=== PATIENT | male | born 1980 | race Caucasian/White ===

== ENCOUNTER 2018-06-03 19:34 | Emergency (ER) | payer OTHER ==
[~2018-06-03] VITALS: Ht 188 cm; Wt 113.4 kg
[2018-06-03] MEDS ORDERED: COZAAR 25 MG TA25 M1 (19:42)
[2018-06-03] MEDS ORDERED: VITAMIN B-12500 MCG (19:43)
[2018-06-03] MEDS ORDERED: ALLEGRA-D 24 H1 EACH (19:43)
[2018-06-03 20:05] LABS: ABSOLUTE BASOPHILS 0.1 thou/uL (0.0-0.2); ABSOLUTE EOSINOPHILS 0.2 thou/uL (0.0-0.7); ABSOLUTE LYMPHOCYTES 2.4 thou/uL (0.8-5.3); ABSOLUTE MONOCYTES 0.6 thou/uL (0.0-1.2); ABSOLUTE NEUTROPHILS 6.3 thou/uL (1.6-8.1); BASOPHILS 1.2 %; EOSINOPHILS 2.4 %; HEMATOCRIT 38.7 % (42.0-52.0); HEMOGLOBIN 13.4 gm/dL (14.0-18.0); MCH 29.7 pg (26.0-34.0); MCHC 34.7 g/dL (28.0-37.0); MCV 85.6 fL (80.0-100.0); MONOCYTES 6.3 %; MPV 8.3 fl. (7.2-11.1); NUCLEATED RBCS 0 /100WBC; PLATELET COUNT* 381 thou/uL (150-400); POLYS 65.1 %; RBC 4.53 mil/uL (4.50-6.00); WBC 9.6 thou/uL (4.0-11.0)
[2018-06-03 20:14] LABS: ANION GAP 7 mmol/L (7-16); BUN 18 mg/dL (7-18); CHLORIDE 103 mmol/L (98-107); CO2 27 mmol/L (21-32); CREATININE 0.9 mg/dL (0.6-1.3); GLUCOSE 108 mg/dL (70-99); POTASSIUM 3.6 mmol/L (3.5-5.1); SODIUM 137 mmol/L (136-145)
[2018-06-03 20:18] LABS: URINE BILIRUBIN NEGATIVE (Negative); URINE BLOOD NEGATIVE (Negative); URINE CLARITY CLEAR; URINE COLOR YELLOW; URINE GLUCOSE-RANDOM NEGATIVE (Negative); URINE KETONES NEGATIVE (Negative); URINE LEUKOCYTES-REFLEX NEGATIVE (Negative); URINE NITRITE-REFLEX NEGATIVE (Negative); URINE PROTEIN NEGATIVE (Negative); URINE SPECIFIC GRAVITY 1.015 (1.005-1.030); URINE UROBILINOGEN 0.2 E.U./dl (0.2-1.0)
[2018-06-03 20:24] LABS: ALBUMIN 4.1 g/dL (3.4-5.0); ALKALINE PHOSPHATASE 82 U/L (46-116); NT-PRO BRAIN NAT PEPTIDE < 5 pg/mL (<300); SGOT 19 U/L (15-37); SGPT 30 U/L (30-65); TOTAL BILIRUBIN 0.2 mg/dL (<0.1-1.0); TOTAL PROTEIN 7.4 g/dL (6.4-8.2); TROPONIN-I LEVEL <0.06 ng/mL (<0.06)
[2018-06-03 20:54] LABS: APTT 28.6 Seconds (25.0-31.3); PROTIME 10.7 Seconds (9.20-11.50)
[2018-06-03 20:56] VITALS: BP 142/93
--- NOTE | 2018-06-04 10:15 | EKG ---
[place] [address] ELECTROCARDIOGRAM REPORT Name: CESIA ROTH [id number] Admission: 06/03/18 Attend Phys: Discharge: 06/03/18 Date of : 78 Report #: [id number] THIS REPORT FOR: //name// [facility] ED Test Date: 2018-06-03 Test Time: 19:40:56 Pat Name: CESIA ROTH Department: Room: Gender: Surgeon'S Assistant: Layla DIAL : 1980 Requested By: Yvon Fischer Order Number: [id number] MD: Tra Bryant Measurements Intervals [place] Rate: 103 P: 47 WY: 175 QRS: 54 QRSD: 114 T: 54 QT: 351 QTc: 460 Interpretive Statements Sinus tachycardia Borderline intraventricular conduction delay Baseline wander in lead(s) V1 No previous ECG available for comparison Electronically Signed On 06-04-2018 10:14:55 INSOLE COVERER by Tra Bryant [email or web address] <ELECTRONICALLY SIGNED> By: Tra Bryant MD, [facility] 06/04/18 [id number] 39 Tra Bryant MD, FACC /EPI
== END 2018-06-03 20:56 | disposition home or self-care (01) ==
LOC: M.ERS 19:34
PROVIDERS: Family Medicine
DX: R42 Dizziness and giddiness (principal); R11.0 Nausea

== ENCOUNTER → 2018-06-16 | Outpatient (CLI) | payer OTHER ==
[~2018-06-16] MED LIST: ALLEGRA-D 24 H1 EACH; COZAAR 25 MG TA25 M1; VITAMIN B-12500 MCG
--- NOTE | 2018-06-17 11:49 | TST ---
[place] [address] TREADMILL STRESS TEST Name: CESIA ROTH Room: [facility]#: [id number] Admission: 06/16/18 Attend Phys: JOANNA DOMINGUEZ Discharge: Date of : 78 Date of Service: 06/16/18 1432 Report #: [id number] THIS REPORT FOR: //name// CC: Hernando Thomson DATE OF SERVICE: 06/16/2018 STUDY: Treadmill exercise test. Resting 12-lead electrocardiogram demonstrates sinus rhythm with a very minor interventricular conduction delay. The patient exercised for 8 minutes and 55 seconds of a Ko protocol, stopping because of fatigue. The patient achieved a peak heart rate of 174, 96% of the age predicted maximum. Blood pressure was 113/60 initially, increasing to 144/68 at peak exercise and falling to 109/71 during the post-exercise phase. There were no ischemic ST-T alterations noted during or post exercise. There were no significant supraventricular or ventricular arrhythmias. IMPRESSION: 1. Negative treadmill exercise test for provocation of ischemic ST-T alterations. 2. No chest pain provoked by exertion. 3. Appropriate heart rate and systolic blood pressure responses to exercise. 4. No significant arrhythmias noted. 5. Satisfactory level of fitness for age. <ELECTRONICALLY SIGNED> By: Hernando Adhikari MD, [facility] 06/17/18 1149 1432 [id number] Hernando Adhikari MD, FACC /nt
== END ==
LOC: M.CRD 12:36
DX: R07.89 Other chest pain (principal); I10 Essential (primary) hypertension; E03.9 Hypothyroidism, unspecified; E66.9 Obesity, unspecified